=== PATIENT | male | born 1960 | race Caucasian/White ===

== ENCOUNTER 2017-12-23 16:23 | Observation (INO) ==
[2017-12-23 17:32] LABS: Basophils # 0.1 10*3/uL (0.0-0.2); Basophils % 1.1 % (0.0-0.8); Eosinophils # 0.1 10*3/uL (0.0-0.87); Eosinophils % 0.9 % (0.00-10.9); Immature Granulocytes % 1.3 %; Immature Granulocytes Absolute 0.07 #; Lymphocytes # 1.2 10*3/uL (1.4-4.0); Lymphocytes % 22.5 % (21.2-54.2); Mean Corpuscular HGB Conc 38.3 GM/DL (32-36); Mean Corpuscular Hemoglobin 38 PG (27-34); Mean Corpuscular Volume 98.3 FL (87-102); Mean Platelet Volume 8.9 FL (9.6-12.0); Monocytes # 0.7 10*3/uL (0.11-0.8); Monocytes % 12.7 % (1.7-12.7); Neutrophils # 3.4 10*3/uL (1.4-7.4); Neutrophils % 61.5 % (38.7-73.9); Platelet Count 238 T/CUMM (130-400); Red Blood Count 3.45 MC/CUMM (3.8-5.5); White Blood Count 5.5 T/CUMM (4-12)
[2017-12-23 17:33] LABS: Hematocrit 33.9 VOL% (42.0-52.0)
[2017-12-23 18:02] LABS: Albumin 4.5 G/DL (3.4-5.0); Calcium 8.8 MG/DL (8.5-10.1); Osmolality,Calculated 239.2 MOS/KG (273-304); Potassium 3.8 MMOL/L (3.5-5.1); Total Protein 7.3 G/DL (6.4-8.3)
[2017-12-23] MEDS ORDERED: SODIUM CHLORIDE 0.9% 1,000 ML IV STA (18:18)
[2017-12-23] MEDS ORDERED: ACETAMINOPHEN 325 MG TABLET PO PRN (19:38)
[2017-12-23] MEDS ORDERED: ZALEPLON 5 MG CAPSULE PO PRN (19:38)
[2017-12-23] MEDS ORDERED: ONDANSETRON 4 MG/2 ML VIAL IV PRN (19:38)
[2017-12-23] MEDS ORDERED: LORazepam 2 MG/1 ML VIAL IV PRN (19:41)
[2017-12-23] MEDS: SODIUM CHLORIDE 0.9% 1,000 ML IV SCH (19:52)
[2017-12-23] MEDS ORDERED: LORazepam 2 MG/1 ML VIAL ONE (19:58)
[2017-12-23] MEDS ORDERED: ONDANSETRON 4 MG/2 ML VIAL ONE (19:58)
[2017-12-23] MEDS ORDERED: LORazepam 2 MG/1 ML VIAL IV STA (20:03)
[2017-12-23] MEDS: ENOXAPARIN 40 MG/0.4 ML SYRINGE SUBCUT SCH (21:10)
[2017-12-24] MEDS: SODIUM CHLORIDE 0.9% 1,000 ML IV SCH ×3 (03:19→16:14)
[2017-12-24 07:07] LABS: Calcium 8.5 MG/DL (8.5-10.1); Osmolality,Calculated 257.8 MOS/KG (273-304); Potassium 4.2 MMOL/L (3.5-5.1)
[2017-12-24] MEDS: NICOTINE 21 MG/24 HR PATCH TRANSDERM SCH (10:00)
[2017-12-24] MEDS: ENOXAPARIN 40 MG/0.4 ML SYRINGE SUBCUT SCH (20:12)
[2017-12-25] MEDS: SODIUM CHLORIDE 0.9% 1,000 ML IV SCH ×2 (00:33→08:10)
[2017-12-25 07:30] VITALS: BP 158/93
[2017-12-25] MEDS: NICOTINE 21 MG/24 HR PATCH TRANSDERM SCH (08:11)
[2017-12-25] MEDS ORDERED: amLODIPine 5 MG TABLET PO SCH (09:00)
[2017-12-25 09:01] LABS: Calcium 8.7 MG/DL (8.5-10.1); Osmolality,Calculated 257.8 MOS/KG (273-304); Potassium 4.2 MMOL/L (3.5-5.1)
== END 2017-12-25 10:36 | disposition home or self-care (01) ==
LOC: N.EDINP 16:23 → N.ED 16:23 → N.5E 20:15
PROVIDERS: ADMIT Internal Medicine; ATTEND Internal Medicine

== ENCOUNTER 2021-04-03 12:50 | Inpatient (IN) ==
[2021-04-03] MEDS ORDERED: ONDANSETRON 4 MG/2 ML VIAL IV STA (13:21)
[2021-04-03] MEDS ORDERED: SODIUM CHLORIDE 0.9% 1,000 ML IV STA (13:21)
[2021-04-03 13:39] LABS: Basophils # 0.1 10*3/uL (0.0-0.2); Basophils % 0.4 % (0.0-0.8); Eosinophils % 0.1 % (0.00-10.9); Hematocrit 25.9 VOL% (42.0-52.0); Hemoglobin 9.4 GM/DL (14.0-18.0); Immature Granulocytes % 1.5 %; Lymphocytes # 2.3 10*3/uL (1.4-4.0); Lymphocytes % 16.7 % (21.2-54.2); Mean Corpuscular HGB Conc 36.3 GM/DL (32-36); Mean Corpuscular Volume 99.6 FL (87-102); Mean Platelet Volume 10.1 FL (9.6-12.0); Monocytes % 5.8 % (1.7-12.7); Neutrophils % 75.5 % (38.7-73.9); Platelet Count 308 T/CUMM (130-400); White Blood Count 13.8 T/CUMM (4-12)
[2021-04-03 14:01] LABS: Albumin 3.3 G/DL (3.4-5.0); Bilirubin,Total 0.8 MG/DL (0.2-1.0); Osmolality,Calculated 279.5 MOS/KG (273-304); Potassium 3.1 MMOL/L (3.5-5.1); Total Protein 6.2 G/DL (6.4-8.2)
[2021-04-03 14:18] LABS: PT Patient Result 10.9 SECS (10.5-12.0); Partial Thromboplastin Time 22.8 SECS (23.9-33.8)
[2021-04-03] MEDS ORDERED: ALBUTEROL 2.5 MG/3 ML NEB RESP TX PRN (15:57)
[2021-04-03] MEDS ORDERED: MAGNESIUM SULF RIDER 2 GM/50 ML PREMIX IV ONE (16:54)
[2021-04-03] MEDS: SODIUM CHLORIDE 0.9% 1,000 ML IV SCH (18:17)
[2021-04-03] MEDS: POTASSIUM CHLORIDE RIDER 10 MEQ/100 ML PREMIX IV PRN ×4 (18:17→21:25)
[2021-04-03 18:29] LABS: Hemoglobin 7.9 GM/DL (14.0-18.0)
[2021-04-03] MEDS ORDERED: NICOTINE 14 MG/24 HR PATCH TRANSDERM PRN (20:33)
[2021-04-03] MEDS: chlordiazePOXIDE 10 MG CAPSULE PO SCH (20:53)
[2021-04-03] MEDS: PANTOPRAZOLE 40 MG VIAL IV SCH (20:54)
[2021-04-04] MEDS: SODIUM CHLORIDE 0.9% 1,000 ML IV SCH ×5 (02:16→19:23)
[2021-04-04 05:04] LABS: Basophils % 0.4 % (0.0-0.8); Eosinophils % 0.6 % (0.00-10.9); Immature Granulocytes Absolute 0.07 #; Lymphocytes # 1.4 10*3/uL (1.4-4.0); Lymphocytes % 21.2 % (21.2-54.2); Mean Corpuscular HGB Conc 36.5 GM/DL (32-36); Mean Corpuscular Volume 100.6 FL (87-102); Mean Platelet Volume 9.6 FL (9.6-12.0); Neutrophils % 69.8 % (38.7-73.9); Platelet Count 166 T/CUMM (130-400); Red Blood Count 1.66 MC/CUMM (3.8-5.5); Red Cell Distribution Width 12.1 % (9.3-17.3); White Blood Count 6.7 T/CUMM (4-12)
[2021-04-04 05:05] LABS: Hematocrit 16.7 VOL% (42.0-52.0); Hemoglobin 6.1 GM/DL (14.0-18.0)
[2021-04-04 05:41] LABS: Albumin 2.4 G/DL (3.4-5.0); Calcium 7.7 MG/DL (8.5-10.1); Osmolality,Calculated 274.1 MOS/KG (273-304); Potassium 3.4 MMOL/L (3.5-5.1); Total Protein 4.5 G/DL (6.4-8.2)
[2021-04-04] MEDS: SODIUM CHLORIDE 0.9% 500 ML IV SCH (07:23)
[2021-04-04] MEDS ORDERED: PHENYLEPHRINE 1 MG/10 ML SYRINGE IV ONE (08:46)
[2021-04-04] MEDS ORDERED: propofoL 200 MG/20 ML VIAL IV ONE (08:46)
[2021-04-04] MEDS ORDERED: LIDOCAINE 2% 5 ML VIAL ONE (08:46)
[2021-04-04] MEDS ORDERED: ETOMIDATE 20 MG/10 ML VIAL IV ONE (08:46)
[2021-04-04 09:57] LABS: Hematocrit 19.7 VOL% (42.0-52.0); Hemoglobin 7.1 GM/DL (14.0-18.0)
[2021-04-04] MEDS: FOLIC ACID 1 MG TABLET PO SCH (10:08)
[2021-04-04] MEDS: OXAZEPAM 10 MG CAPSULE PO SCH ×3 (10:08→22:27)
[2021-04-04] MEDS: PANTOPRAZOLE 40 MG VIAL IV SCH ×2 (10:08→22:27)
[2021-04-04] MEDS: MULTIVITAMIN (CENTRUM) TABLET PO SCH (10:08)
[2021-04-04] MEDS: THIAMINE 100 MG TABLET PO SCH (10:08)
[2021-04-04] MEDS: POTASSIUM CHLORIDE RIDER 10 MEQ/100 ML PREMIX IV PRN ×3 (10:10→13:00)
[2021-04-04] MEDS: chlordiazePOXIDE 10 MG CAPSULE PO SCH (10:24)
[2021-04-04 20:55] LABS: Hematocrit 23.1 VOL% (42.0-52.0); Hemoglobin 8.1 GM/DL (14.0-18.0)
[2021-04-05 05:27] LABS: Basophils % 0.5 % (0.0-0.8); Eosinophils # 0.2 10*3/uL (0.0-0.87); Eosinophils % 2.5 % (0.00-10.9); Hematocrit 22.7 VOL% (42.0-52.0); Hemoglobin 8.1 GM/DL (14.0-18.0); Immature Granulocytes % 1.7 %; Lymphocytes # 1.4 10*3/uL (1.4-4.0); Lymphocytes % 24.1 % (21.2-54.2); Mean Corpuscular HGB Conc 35.7 GM/DL (32-36); Mean Corpuscular Volume 96.2 FL (87-102); Mean Platelet Volume 9.5 FL (9.6-12.0); Monocytes % 6.9 % (1.7-12.7); Neutrophils % 64.3 % (38.7-73.9); Platelet Count 161 T/CUMM (130-400); Red Blood Count 2.36 MC/CUMM (3.8-5.5); Red Cell Distribution Width 16.1 % (9.3-17.3)
[2021-04-05] MEDS: OXAZEPAM 10 MG CAPSULE PO SCH ×3 (05:27→16:48)
[2021-04-05] MEDS: SODIUM CHLORIDE 0.9% 1,000 ML IV SCH ×3 (05:29→20:22)
[2021-04-05 05:45] LABS: Albumin 2.6 G/DL (3.4-5.0); Bilirubin,Total 0.9 MG/DL (0.2-1.0); Calcium 7.8 MG/DL (8.5-10.1); Potassium 3.4 MMOL/L (3.5-5.1); Total Protein 4.8 G/DL (6.4-8.2)
[2021-04-05] MEDS ORDERED: SODIUM CHLORIDE 0.9% 1,000 ML IV PRN (07:03)
[2021-04-05 08:52] LABS: Hematocrit 24.2 VOL% (42.0-52.0); Hemoglobin 8.7 GM/DL (14.0-18.0)
[2021-04-05] MEDS: FOLIC ACID 1 MG TABLET PO SCH (09:08)
[2021-04-05] MEDS: MULTIVITAMIN (CENTRUM) TABLET PO SCH (09:08)
[2021-04-05] MEDS: THIAMINE 100 MG TABLET PO SCH (09:08)
[2021-04-05] MEDS: PANTOPRAZOLE 40 MG VIAL IV SCH (09:13)
[2021-04-05 17:21] VITALS: BP 149/75
[2021-04-05 17:56] LABS: Hemoglobin 9.3 GM/DL (14.0-18.0)
[2021-04-05] MEDS: SODIUM CHLORIDE 0.9% 500 ML IV SCH (20:21)
== END 2021-04-05 20:20 | disposition home or self-care (01) | DRG 241 ==
LOC: N.ED 12:50 → N.EDINP 15:57 → SUATTDRO 15:57 → N.CC 16:59 → N.4E 04-04 17:08
PROVIDERS: ADMIT Internal Medicine; ATTEND Emergency Medicine

== ENCOUNTER 2021-09-20 16:51 | Observation (INO) ==
[2021-09-20 18:51] LABS: Albumin 3.9 G/DL (3.4-5.0); Bilirubin,Total 1.3 MG/DL (0.20-1.00); Calcium 9.4 MG/DL (8.5-10.1); Osmolality,Calculated 240.3 MOS/KG (273-304); Total Protein 7.1 G/DL (6.4-8.2)
[2021-09-20] MEDS ORDERED: PANTOPRAZOLE 40 MG VIAL IV STA (18:52)
[2021-09-20] MEDS ORDERED: ONDANSETRON 4 MG/2 ML VIAL IV STA (18:52)
[2021-09-20] MEDS ORDERED: SODIUM CHLORIDE 0.9% 500 ML IV STA (18:52)
[2021-09-20 18:56] LABS: Basophils # 0.1 10*3/uL (0.0-0.2); Basophils % 0.5 % (0.0-0.8); Eosinophils % 0.4 % (0.00-10.9); Hematocrit 32.6 VOL% (42.0-52.0); Hemoglobin 12.3 GM/DL (14.0-18.0); Immature Granulocytes % 0.9 %; Lymphocytes # 1.4 10*3/uL (1.4-4.0); Lymphocytes % 12.4 % (21.2-54.2); Mean Corpuscular HGB Conc 37.7 GM/DL (32-36); Mean Corpuscular Volume 93.4 FL (87-102); Mean Platelet Volume 10.1 FL (9.6-12.0); Monocytes % 8.4 % (1.7-12.7); Neutrophils % 77.4 % (38.7-73.9); Platelet Count 216 T/CUMM (130-400); Red Blood Count 3.49 MC/CUMM (3.8-5.5); Red Cell Distribution Width 11.8 % (9.3-17.3); White Blood Count 10.9 T/CUMM (4-12)
[2021-09-20] MEDS ORDERED: POTASSIUM CHLORIDE RIDER 20 MEQ/100 ML PREMIX IV STA (19:13)
[2021-09-20] MEDS ORDERED: ALBUTEROL/IPRATROPIUM 3 ML NEB RESP TX ONE (19:26)
[2021-09-20] MEDS ORDERED: THIAMINE INJ 100 MG, FOLIC ACID INJ 1 MG, MAGNESIUM SULF INJ 2 GM, MULTIVITAMIN INJ 10 ... IV ONE (19:30)
[2021-09-20] MEDS ORDERED: POTASSIUM CHLORIDE RIDER 10 MEQ/100 ML PREMIX IV SCH (19:30)
[2021-09-20] MEDS ORDERED: ALBUTEROL/IPRATROPIUM 3 ML NEB RESP TX STA (19:38)
[2021-09-20] MEDS ORDERED: GLUCAGON 1 MG VIAL IM PRN (21:08)
[2021-09-20] MEDS ORDERED: DEXTROSE 50% 25 GM/50 ML SYRINGE IV PRN (21:08)
[2021-09-20] MEDS ORDERED: ACETAMINOPHEN 325 MG TABLET PO PRN (21:08)
[2021-09-20] MEDS ORDERED: NICOTINE 21 MG/24 HR PATCH TRANSDERM PRN (21:08)
[2021-09-20] MEDS ORDERED: ONDANSETRON 4 MG/2 ML VIAL IV PRN (21:08)
[2021-09-20] MEDS ORDERED: LORazepam 2 MG/1 ML VIAL IV PRN (21:24)
[2021-09-20] MEDS ORDERED: MAGNESIUM SULF RIDER 2 GM/50 ML PREMIX IV PRN (21:41)
[2021-09-20] MEDS ORDERED: MAGNESIUM SULF RIDER 4 GM/100 ML PREMIX IV PRN (21:41)
[2021-09-20] MEDS ORDERED: ALBUTEROL/IPRATROPIUM 3 ML NEB RESP TX PRN (21:55)
[2021-09-20 22:32] LABS: Bilirubin,Urine Negative (Negative); Blood, Urine Negative (Negative); Glucose,Urine (UA) Negative (Negative); Ketones,Urine Negative (Negative); Nitrite,Urine Negative (Negative); Protein,Urine Negative; RBC,Urine 1 /HPF (0-4); Urine Appearance CLEAR (Clear); Urine Color Straw (Yellow); Urine Specific Gravity 1.039 (1.001-1.035); Urine Urobilinogen < 2.0 EU/DL (0.2-1.0)
[2021-09-20] MEDS ORDERED: MAGNESIUM SULF RIDER 4 GM/100 ML PREMIX IV ONE (23:00)
[2021-09-21 07:30] LABS: Basophils # 0.1 10*3/uL (0.0-0.2); Basophils % 0.6 % (0.0-0.8); Eosinophils # 0.1 10*3/uL (0.0-0.87); Eosinophils % 0.8 % (0.00-10.9); Hematocrit 29.1 VOL% (42.0-52.0); Hemoglobin 10.8 GM/DL (14.0-18.0); Immature Granulocytes % 0.6 %; Immature Granulocytes Absolute 0.05 #; Lymphocytes # 1.3 10*3/uL (1.4-4.0); Lymphocytes % 15.9 % (21.2-54.2); Mean Corpuscular HGB Conc 37.1 GM/DL (32-36); Mean Corpuscular Volume 95.4 FL (87-102); Mean Platelet Volume 9.5 FL (9.6-12.0); Monocytes % 9.9 % (1.7-12.7); Neutrophils % 72.2 % (38.7-73.9); Platelet Count 184 T/CUMM (130-400); Red Blood Count 3.05 MC/CUMM (3.8-5.5); Red Cell Distribution Width 12.1 % (9.3-17.3); White Blood Count 7.9 T/CUMM (4-12)
[2021-09-21 08:08] LABS: Albumin 3.8 G/DL (3.4-5.0); Bilirubin,Total 1.4 MG/DL (0.20-1.00); Calcium 9.1 MG/DL (8.5-10.1); Osmolality,Calculated 258.1 MOS/KG (273-304); Potassium 3.3 MMOL/L (3.5-5.1); Total Protein 6.7 G/DL (6.4-8.2)
[2021-09-21 08:09] LABS: Calcium 9.1 MG/DL (8.5-10.1); Osmolality,Calculated 258.1 MOS/KG (273-304); Potassium 3.3 MMOL/L (3.5-5.1)
[2021-09-21 08:24] LABS: Potassium 3.3 MMOL/L (3.5-5.1)
[2021-09-21] MEDS ORDERED: SODIUM CHLOR 0.9% KCL 40 MEQ 40 MEQ/1,000 ML BAG IV SCH (08:30)
[2021-09-21] MEDS ORDERED: ENOXAPARIN 40 MG/0.4 ML SYRINGE SUBCUT SCH ×2 (09:00→21:00)
[2021-09-21] MEDS ORDERED: PANTOPRAZOLE 40 MG TABLET PO SCH (09:00)
[2021-09-21] MEDS: PANTOPRAZOLE 40 MG VIAL IV SCH ×2 (10:03→21:34)
[2021-09-21] MEDS: POTASSIUM CHLORIDE 20 MEQ TABLET PO PRN ×3 (10:03→23:01)
[2021-09-21] MEDS: SODIUM CHLORIDE 0.9% 1,000 ML IV SCH ×2 (10:04→10:05)
[2021-09-21] MEDS: FOLIC ACID 1 MG TABLET PO SCH (10:04)
[2021-09-21] MEDS: THIAMINE 100 MG TABLET PO SCH (10:04)
[2021-09-21] MEDS: MULTIVITAMIN (CENTRUM) TABLET PO SCH (10:04)
[2021-09-21] MEDS ORDERED: chlordiazePOXIDE 25 MG CAPSULE PO PRN (11:35)
[2021-09-21] MEDS ORDERED: LORazepam 2 MG/1 ML VIAL ONE (14:20)
[2021-09-21 14:39] LABS: Calcium 8.8 MG/DL (8.5-10.1); Osmolality,Calculated 253.4 MOS/KG (273-304); Potassium 3.2 MMOL/L (3.5-5.1)
[2021-09-21] MEDS: LORazepam 2 MG/1 ML VIAL IV SCH ×5 (14:49→22:00)
[2021-09-21] MEDS ORDERED: LORazepam 2 MG/1 ML VIAL IV PRN (23:45)
[2021-09-22] MEDS: POTASSIUM CHLORIDE 20 MEQ TABLET PO PRN (01:07)
[2021-09-22] MEDS: SODIUM CHLORIDE 0.9% 1,000 ML IV SCH (01:12)
[2021-09-22 08:25] LABS: Basophils % 0.6 % (0.0-0.8); Eosinophils # 0.1 10*3/uL (0.0-0.87); Eosinophils % 1.6 % (0.00-10.9); Hematocrit 26.5 VOL% (42.0-52.0); Hemoglobin 9.4 GM/DL (14.0-18.0); Immature Granulocytes % 0.6 %; Immature Granulocytes Absolute 0.03 #; Lymphocytes # 0.9 10*3/uL (1.4-4.0); Lymphocytes % 18.2 % (21.2-54.2); Mean Corpuscular HGB Conc 35.5 GM/DL (32-36); Mean Corpuscular Volume 98.1 FL (87-102); Mean Platelet Volume 9.6 FL (9.6-12.0); Monocytes % 9.8 % (1.7-12.7); Neutrophils % 69.2 % (38.7-73.9); Platelet Count 175 T/CUMM (130-400); Red Cell Distribution Width 12.3 % (9.3-17.3)
[2021-09-22 08:33] LABS: Albumin 3.5 G/DL (3.4-5.0); Bilirubin,Direct 0.57 MG/DL (0.0-0.20); Bilirubin,Indirect 1.5 MG/DL (0.0-1.0); Bilirubin,Total 2.1 MG/DL (0.20-1.00); Total Protein 6.1 G/DL (6.4-8.2)
[2021-09-22 08:34] LABS: INR 0.9; PT Patient Result 10.7 SECS (10.5-12.0)
[2021-09-22] MEDS ORDERED: POTASSIUM CHLORIDE 20 MEQ TABLET PO ONE (09:00)
[2021-09-22] MEDS: PANTOPRAZOLE 40 MG VIAL IV SCH (09:41)
[2021-09-22] MEDS: MULTIVITAMIN (CENTRUM) TABLET PO SCH (09:41)
[2021-09-22] MEDS: THIAMINE 100 MG TABLET PO SCH (09:41)
[2021-09-22] MEDS: FOLIC ACID 1 MG TABLET PO SCH (09:41)
[2021-09-22 11:35] VITALS: BP 113/76
== END 2021-09-22 13:30 | disposition home or self-care (01) ==
LOC: N.ED 16:51 → INTOOBSV 09-21 05:16 → N.EDINP 09-21 05:16 → N.5E 09-21 05:56
PROVIDERS: ADMIT Internal Medicine; ATTEND Internal Medicine